=== PATIENT | male | born 1985 | race Caucasian/White ===

== ENCOUNTER 2017-05-21 01:28 | Emergency (ER) | payer OTHER ==
[2017-05-21] MEDS ORDERED: DIPH/PERTUSS(ACELL)/TETANUS VAC/PF 0.5 ML SYR (>=10YO) IM ONE (01:44)
[2017-05-21] MEDS ORDERED: BUPIVACAINE HCL 0.5%-EPI 1:200000 INJ/PF 30 ML VIAL INJ ONE (01:44)
--- NOTE | 2017-05-21 01:45 | ER Document Report ---
ED Wound - General Mode of Arrival: Medic Information source: Patient <KARYNARADHA - Last Filed: 05/21/17 04:05> <CHANDNI SORENSON - Last Filed: 05/21/17 04:09> - General Chief Complaint: Laceration Stated Complaint: HEAD INJURY Time Seen by Provider: 05/21/17 01:35 Notes: Patient is a 31-year-old male presents to the emergency department today after slipping on ice just prior to arrival. 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 Patient denies any loss of consciousness after the fall. Patient has a laceration to his forehead and his upper lip with associated swelling. Patient states he thinks his last tetanus shot was in 2004. Patient denies any usage of blood thinners, dizziness, vomiting, or neck pain. (RADHA TRONCOSO) Past Medical History - General Information source: Patient - Social History Smoking Status: Current Every Day Smoker - e-cig Frequency of alcohol use: None Drug Abuse: None Lives with: Family Family History: Reviewed & Not Pertinent GI Medical History: Reports: Other - IBS Surgical Hx: Negative <RADHA TRONCOSO - Last Filed: 05/21/17 04:05> Review of Systems - Review of Systems Constitutional: No symptoms reported EENT: No symptoms reported Cardiovascular: denies: Dizziness Respiratory: No symptoms reported Gastrointestinal: denies: Nausea, Vomiting Genitourinary: No symptoms reported Male Genitourinary: No symptoms reported Musculoskeletal: No symptoms reported Skin: See HPI, Other - laceration to forehead, upper lip swelling Hematologic/Lymphatic: No symptoms reported Neurological/Psychological: denies: Lost consciousness -: Yes All other systems reviewed and negative <RADHA TRONCOSO - Last Filed: 05/21/17 04:05> Physical Exam <RADHA TRONCOSO - Last Filed: 05/21/17 04:05> <CHANDNI SORENSON - Last Filed: 05/21/17 04:09> - Vital signs Vitals: Temp Pulse Resp BP Pulse Ox 97.9 F 70 16 118/81 100 05/21/17 03:11 05/21/17 03:11 05/21/17 03:11 05/21/17 03:11 05/21/17 03:11 - Notes Notes: PHYSICAL EXAM GENERAL: Alert, interacts well. No acute distress. HEAD: Normocephalic, irregular, deep although not to the skull, 3cm laceration requiring 7 stitches. EYES: Pupils equal, round, and reactive to light. Extraocular movements intact. ENT: Oral mucosa moist, tongue midline. Right upper lip swelling. Ecchymosis on underside of upper lip with 2 mm vertical laceration that is non-gaping, will not trap food. Teeth approximate well, no fracture or loose teeth. NECK: Full range of motion. Supple. Trachea midline. LUNGS: Clear to auscultation bilaterally, no wheezes, rales, or rhonchi. No respiratory distress. HEART: Regular rate and rhythm. No murmurs, gallops, or rubs. ABDOMEN: Soft, non-tender. Non-distended. Bowel sounds present in all 4 quadrants. EXTREMITIES: Moves all 4 extremities spontaneously. No edema, radial and dorsalis pedis pulses 2/4 bilaterally. No cyanosis. NEUROLOGICAL: Alert and oriented x3. Normal speech. PSYCH: Normal affect, normal mood. SKIN: Warm, dry, normal turgor. No rashes. (RADHA TRONCOSO) No midline bony tenderness to palpation on the posterior neck. (CHANDNI SORENSON) Course <RADHA TRONCOSO - Last Filed: 05/21/17 04:05> <CHANDNI SORENSON - Last Filed: 05/21/17 04:09> - Re-evaluation Re-evalutation: 05/21/17 03:05 No signs of concussion, no confusion or disorientation, no indication for CT scan of the head. Patient's tetanus shot is out of date, it will be updated today. Wound was cleaned and approximated using sutures. Discharged to home. ( CHANDNI SORENSON) - Vital Signs Vital signs: Temp Pulse Resp BP Pulse Ox 97.9 F 70 16 118/81 100 05/21/17 03:11 05/21/17 03:11 05/21/17 03:11 05/21/17 03:11 05/21/17 03:11 Procedures - Laceration/Wound Repair Upper Face Wound length (cm): 3 Wound's Depth, Shape: Irregular, Flap Laceration pre-procedure: Sterile PPE donned, Sterile drapes applied, Shur- Clens applied Anesthetic type: 1% Lidocaine w/epi Wound explored: Clean, No foreign body removed Wound Debrided: Minimal Wound Repaired With: Sutures Suture Size/Type: 5:0, Ethilon Number of Sutures: 7 Layer Closure?: No Post-procedure wound care: Sterile dressing applied Post-procedure NV exam normal: Yes - Aside from numbness around the wound due to local anesthetic. Complications: No <CHANDNI SORENSON - Last Filed: 05/21/17 04:09> Discharge <RADHA TRONCOSO - Last Filed: 05/21/17 04:05> <CHANDNI SORENSON - Last Filed: 05/21/17 04:09> - Discharge Clinical Impression: Tobacco abuse Forehead laceration Qualifiers: Encounter type: initial encounter Qualified Code(s): S01.81XA - Laceration without foreign body of other part of head, initial encounter Condition: Stable Disposition: HOME, SELF-CARE Additional Instructions: Laceration Care Your laceration has been sutured to keep the skin edges aligned during healing. Have the sutures removed in 5-7 days. Please follow the care instructions the doctor has outlined for you and return for further care, according to the schedule you've been given. Keep the wound and dressing clean. Unless you were told otherwise, you may shower daily, blotting the wound dry with a clean, unused towel. At other times, If the dressing gets wet or blood soaked, remove it and blot the wound dry, then reapply a new dressing, use a small amount of antibiotic ointment as well. Unless you were instructed otherwise, dressings should be changed at least daily. If any signs of infection occur (swelling, redness, increasing tenderness, red streaks, tender lumps in the armpit or groin above the laceration, or fever) , see the doctor immediately. Once the sutures are removed and the scab has healed please keep sunscreen on it and perform scar massage 3 times daily. Forms: Smoking Cessation Education Scribe Attestation: 05/21/17 04:09 I personally performed the services described in the documentation, reviewed and edited the documentation which was dictated to the scribe in my presence, and it accurately records my words and actions. (CHANDNI SORENSON) Scribe Documentation - Scribe Written by Tariq:: Tariq Acevedo, 05/21/2017 [id number] acting as scribe for :: Mariella <RADHA TRONCOSO - Last Filed: 05/21/17 04:05>
[2017-05-21] MEDS ORDERED: LIDOCAINE 1% INJ-PF (10 MG/ML) 30 ML SDV INJ ONE (01:46)
[2017-05-21 03:13] VITALS: BP 118/81
== END 2017-05-21 03:22 | disposition home or self-care (01) ==
LOC: ER 01:28
PROC: 0HQ1XZZ Repair Face Skin, External Approach (ICD-10-PCS; principal; 2017-05-21)
DX: S01.81XA Laceration without foreign body of other part of head, initial encounter (principal); S01.511A Laceration without foreign body of lip, initial encounter; W00.0XXA Fall on same level due to ice and snow, initial encounter; F17.200 Nicotine dependence, unspecified, uncomplicated
CPT/HCPCS: 99283; 90471; 90715; 12013; J3490